=== PATIENT | female | born 1980 | race Caucasian/White ===

== ENCOUNTER 2019-12-25 11:09 | Emergency (ER) | payer OTHER ==
[~2019-12-25] VITALS: Ht 165.1 cm; Wt 104.5 kg
[2019-12-25] MEDS ORDERED: KETOROLAC TROMETHAMINE 60 MG/2 ML VIAL IM ONE (12:30)
[2019-12-25] MEDS ORDERED: ACETAMINOPHEN 500 MG TABLET PO ONE (12:30)
[2019-12-25] MEDS ORDERED: METHOCARBAMOL 750 MG TABLET PO ONE (12:30)
[2019-12-25 15:09] VITALS: BP 120/65
== END 2019-12-25 15:16 | disposition home or self-care (01) ==
LOC: EMS 11:12
DX: M54.41 Lumbago with sciatica, right side (principal)
CPT/HCPCS: 72100; 72170; 73562; 81025; 96372; 99284; J1885